=== PATIENT | female | born 1975 | race Caucasian/White ===

== ENCOUNTER 2023-01-20 07:33 | Outpatient (CLI) | payer OTHER, SELFPAY ==
--- NOTE | 2023-01-20 07:45 | CRLHL7_ITS ---
For Patients: As a result of the Cures Act, medical imaging exams and procedure reports are released immediately into your electronic medical record. You may view this report before your referring provider. If you have questions, please contact your health care provider. BILATERAL SCREENING MAMMOGRAM WITH COMPUTER-AIDED DETECTION AND TOMOSYNTHESIS TECHNIQUE: CC and MLO views were obtained. These mammographic images have been obtained using full-field digital technique. These mammographic images were interpreted with the benefit of computer-aided detection. Breast Tomosynthesis was used in this interpretation. COMPARISON FILM: 09/07/21, 04/16/18. FINDINGS: The breasts are heterogeneously dense, which may obscure small masses IMPRESSION: There is no radiographic evidence for malignancy. ASSESSMENT: BI-RADS Category 1: Negative RECOMMENDATION: Routine screening mammogram in 1 year. A lay language report of this examination will be provided to the patient. NATALIA DIAS M.D. Diagnostic/Nuclear Medicine Radiologist [email or web address] REGINA:[email or web address] Transcribed: 2:42 p.mBenjamin claros/Dictated by: Natalia Dias MD @ 01/21/2023 8:41:00 AM (Electronically Signed)
== END 2023-01-20 07:34 | disposition home or self-care (01) ==
LOC: MAMMO 07:35
PROVIDERS: PCP Family Medicine; Visit Provider Family Medicine
DX: Z12.31 Encounter for screening mammogram for malignant neoplasm of breast (principal); R92.2 Inconclusive mammogram
CPT/HCPCS: 77063; 77067

== ENCOUNTER 2023-01-21 14:14 | Outpatient (CLI) | payer OTHER, SELFPAY | END 2023-01-21 14:15 | disposition home or self-care (01) | LOC: NFLDREF 01-23 09:28 | PROVIDERS: PCP Family Medicine; Referring Provider Family Medicine; Visit Provider Advanced Practice Midwife | DX: Z01.419 Encounter for gynecological examination (general) (routine) without abnormal findings (principal); Z13.1 Encounter for screening for diabetes mellitus; Z12.4 Encounter for screening for malignant neoplasm of cervix; Z13.6 Encounter for screening for cardiovascular disorders | CPT/HCPCS: 80061 ==

== ENCOUNTER 2023-02-04 12:02 | Outpatient (CLI) | payer OTHER, SELFPAY ==
--- NOTE | 2023-02-04 13:57 | W.ANESCHARGE ---
Anesthesia Charges Start Date/Time Anesthesia Start Date: 02/04/23 Anesthesia Start Time: 13:05 Stop Date/Time Anesthesia Stop Date: 02/04/23 Anesthesia Stop Time: 13:52
--- NOTE | 2023-02-04 14:15 | W.ANESCHARGE ---
Anesthesia Charges Start Date/Time Anesthesia Start Date: 02/04/23 Anesthesia Start Time: 13:05 Stop Date/Time Anesthesia Stop Date: 02/04/23 Anesthesia Stop Time: 13:52
== END 2023-02-04 12:03 | disposition home or self-care (01) ==
LOC: OP CLINIC 12:02
PROVIDERS: PCP Family Medicine; Visit Provider Surgery
DX: Z12.11 Encounter for screening for malignant neoplasm of colon (principal); K63.5 Polyp of colon; Z80.0 Family history of malignant neoplasm of digestive organs; R19.8 Other specified symptoms and signs involving the digestive system and abdomen
CPT/HCPCS: 00813; 43239; 45385; 88305; J2704

== ENCOUNTER 2024-07-19 13:07 | Outpatient (CLI) | payer OTHER, SELFPAY ==
--- NOTE | 2024-07-19 13:20 | CRLHL7_ITS ---
For Patients: As a result of the Century Cures Act, medical imaging exams and procedure reports are released immediately into your electronic medical record. You may view this report before your referring provider. If you have questions, please contact your health care provider. INDICATION: BILATERAL SCREENING MAMMOGRAM, ASYMPTOMATIC 49 Y/O FEMALE COMPARISON: 01/20/23, 09/07/21, 04/16/18 TECHNIQUE: CC and MLO views were obtained. These mammographic images have been obtained using full-field digital technique. These mammographic images were interpreted with the benefit of computer aided detection and tomosynthesis. BREAST COMPOSITION: The breasts are heterogeneously dense, which may obscure small masses. FINDINGS: No suspicious findings. ASSESSMENT: BI-RADS 2 Benign RECOMMENDATION: Annual screening mammogram. A lay language report of this examination will be provided to the patient. Dictated by: Vishal Sullivan MD @ 07/28/2024 09:13:14 (Electronically Signed)
== END 2024-07-19 13:08 | disposition home or self-care (01) ==
LOC: MAMMO 13:07
PROVIDERS: PCP Family Medicine; Visit Provider Family Medicine
DX: Z12.31 Encounter for screening mammogram for malignant neoplasm of breast (principal); R92.333 Mammographic heterogeneous density, bilateral breasts
CPT/HCPCS: 77063; 77067